=== PATIENT | female | born 1985 | race Caucasian/White ===

== ENCOUNTER → 2016-07-11 08:42 | Outpatient (CLI) | payer BC ==
[2016-07-11 08:50] LABS: BASOPHILS 0.4 % (0.0-2.0); EOSINOPHILS 3.2 % (0-7); HEMATOCRIT 36.4 % (36.0-48.0); HEMOGLOBIN 11.2 g/dL (12-16); IMMATURE GRANULOCYTES 0.3 % (0-5); LYMPHOCYTES 2.7 % (15-50); MCH 25.6 pg (26.0-34.0); MCHC 30.8 g/dL (31.0-37.0); MCV 83.3 fL (80.0-100.0); MEAN PLATELET VOLUME 9.3 fL (7.4-10.4); MONOCYTES 10.6 % (2-11); NEUTROPHILS 82.8 % (40-80); PLATELET COUNT 597 10x3/uL (130-400); RBC 4.37 10x6/uL (4.00-5.40); RDW 15.5 % (11.5-14.5); WBC 11.4 10x3/uL (4.8-10.8)
== END | disposition home or self-care (01) ==
LOC: D.LABREF 08:42
PROVIDERS: Nurse Practitioner Family
DX: D72.829 Elevated white blood cell count, unspecified (principal)

== ENCOUNTER → 2016-08-11 12:50 | Outpatient (CLI) | payer BC ==
[2016-08-11 14:00] LABS: % SATURATION 3 % (15-55); IRON 17 ug/dl (35-150); TOTAL IRON BIND CAPACITY 457 ug/dl (260-445); UNSAT IRON BIND CAPACITY 440 ug/dl (150-375)
[2016-08-11 14:26] LABS: BASOPHILS 0.2 % (0.0-2.0); EOSINOPHILS 0 % (0-7); HEMATOCRIT 39.5 % (36.0-48.0); HEMOGLOBIN 12.1 g/dL (12-16); IMMATURE GRANULOCYTES 0.3 % (0-5); MCH 26.2 pg (26.0-34.0); MCHC 30.6 g/dL (31.0-37.0); MCV 85.5 fL (80.0-100.0); MEAN PLATELET VOLUME 10.5 fL (7.4-10.4); MONOCYTES 1.2 % (2-11); NEUTROPHILS 90.3 % (40-80); RBC 4.62 10x6/uL (4.00-5.40); RDW 17.7 % (11.5-14.5); WBC 11.1 10x3/uL (4.8-10.8)
[2016-08-11 14:29] LABS: PLATELET COUNT 459 10x3/uL (130-400)
[2016-08-12 08:17] LABS: FOLATE (FOLIC ACID) - SERUM 13.6 ng/mL (>3.0)
[2016-08-14 10:11] LABS: VITAMIN D 25 HYDROXY 7.6 ng/mL (30.0-100.0)
== END | disposition home or self-care (01) ==
LOC: D.LABREF 12:50
PROVIDERS: Orthopaedic Surgery Sports Medicine
DX: R53.83 Other fatigue (principal)

== ENCOUNTER → 2017-02-06 10:34 | Outpatient (CLI) | payer BC | END | disposition home or self-care (01) | LOC: D.RAD 10:34 | DX: J45.909 Unspecified asthma, uncomplicated (principal) ==

== ENCOUNTER → 2017-05-04 18:54 | Outpatient (CLI) | payer BC | END | disposition home or self-care (01) | LOC: D.LABREF 18:54 | DX: R31.9 Hematuria, unspecified (principal); N39.0 Urinary tract infection, site not specified ==

== ENCOUNTER → 2017-07-06 18:42 | Outpatient (CLI) | payer BC | END | disposition home or self-care (01) | LOC: D.LABREF 18:42 | DX: N39.0 Urinary tract infection, site not specified (principal) ==

== ENCOUNTER → 2017-07-11 16:40 | Outpatient (CLI) | payer BC | END | disposition home or self-care (01) | LOC: D.LABREF 16:40 | DX: N39.0 Urinary tract infection, site not specified (principal) ==

== ENCOUNTER → 2017-07-13 18:41 | Outpatient (CLI) | payer BC | END | disposition home or self-care (01) | LOC: D.LABREF 18:41 | DX: N39.0 Urinary tract infection, site not specified (principal) ==

== ENCOUNTER → 2017-10-01 15:27 | Outpatient (CLI) | payer BC ==
[2017-10-01 20:14] LABS: BASOPHILS 0.5 % (0-2); EOSINOPHILS 4.4 % (0-7); HEMATOCRIT 36.7 % (36.0-48.0); HEMOGLOBIN 11.2 g/dL (12-16); IMMATURE GRANULOCYTES 0.1 % (0-5); MCH 25.4 pg (26.0-34.0); MCHC 30.5 g/dL (31.0-37.0); MCV 83.2 fL (80.0-100.0); MEAN PLATELET VOLUME 9.6 fL (7.4-10.4); MONOCYTES 9.1 % (2-11); NEUTROPHILS 47.9 % (40-80); RBC 4.41 10x6/uL (4.00-5.40); RDW 18.4 % (11.5-14.5); WBC 11.7 10x3/uL (4.8-10.8)
[2017-10-01 20:24] LABS: PLATELET COUNT 674 10x3/uL (130-400)
[2017-10-01 20:25] LABS: % SATURATION 49 % (15-55); IRON 204 ug/dl (35-150); TOTAL IRON BIND CAPACITY 414 ug/dl (260-445); UNSAT IRON BIND CAPACITY 210 ug/dl (150-375)
== END | disposition home or self-care (01) ==
LOC: D.LABREF 15:27
PROVIDERS: Urology
DX: D50.9 Iron deficiency anemia, unspecified (principal)

== ENCOUNTER → 2018-02-22 17:01 | Outpatient (CLI) | payer BC | END | disposition home or self-care (01) | LOC: D.LABREF 17:01 | DX: D72.829 Elevated white blood cell count, unspecified (principal); R31.9 Hematuria, unspecified ==

== ENCOUNTER 2018-05-12 11:01 | Outpatient (CLI) | payer BC ==
[2018-05-12 12:04] LABS: BASOPHILS 0.5 % (0-2); EOSINOPHILS 2.7 % (0-7); HEMATOCRIT 37.4 % (36.0-48.0); HEMOGLOBIN 12.2 g/dL (12-16); IMMATURE GRANULOCYTES 0.2 % (0-5); LYMPHOCYTES 34.8 % (15-50); MCH 27.9 pg (26.0-34.0); MCHC 32.6 g/dL (31.0-37.0); MCV 85.4 fL (80.0-100.0); MEAN PLATELET VOLUME 9.2 fL (7.4-10.4); MONOCYTES 8.4 % (2-11); NEUTROPHILS 53.4 % (40-80); PLATELET COUNT 593 10x3/uL (130-400); RBC 4.38 10x6/uL (4.00-5.40); RDW 16.2 % (11.5-14.5); WBC 11.3 10x3/uL (4.8-10.8)
[2018-05-12 12:26] LABS: ALBUMIN 3.7 g/dL (3.4-5.0); ALKALINE PHOSPHATASE 57 U/L (46-116); ALT (SGPT) 25 U/L (10-68); BILIRUBIN - TOTAL 0.43 mg/dL (0.2-1.3); CALC OSMOLALITY 274 mosm/kg (275-300); CALCIUM 8.3 mg/dL (8.5-10.1); CARBON DIOXIDE 23.4 mmol/L (21.0-32.0); CHLORIDE - SERUM 104 mmol/L (98-107); CREATININE - SERUM 0.8 mg/dL (0.6-1.3); GLUCOSE 87 mg/dL (74-106); POTASSIUM - SERUM 4.1 mmol/L (3.5-5.1); SODIUM 139 mmol/L (136-145); UREA NITROGEN 8 mg/dL (7-18); eGFR NON AFRICAN AMERICAN 87 mL/min (90-120)
[2018-05-12 16:44] LABS: APPEARANCE HAZY (CLEAR); COLOR RED (YELLOW); GLUCOSE NEGATIVE (NEGATIVE); NITRITE NEGATIVE (NEGATIVE); PROTEIN TRACE mg/dL (NEGATIVE)
[2018-05-12 16:45] LABS: BILIRUBIN NEGATIVE (NEGATIVE); KETONE MODERATE mg/dL (NEGATIVE); UROBILINOGEN NORMAL (NORMAL)
[2018-05-12 16:46] LABS: RED CELLS - URINE >50 /hpf (0-5); WHITE CELLS - URINE 0-5 /hpf (0-5)
[2018-05-12 16:47] LABS: BACTERIA FEW /hpf (NONE SEEN)
== END 2018-05-12 17:11 | disposition home or self-care (01) ==
LOC: D.OPS 11:01 → D.MS 15:00
PROVIDERS: Family Medicine; Urology
DX: N20.1 Calculus of ureter (principal); Z01.812 Encounter for preprocedural laboratory examination

== ENCOUNTER → 2018-08-01 08:00 | Outpatient (CLI) | payer BC ==
[2018-05-12 15:35] VITALS: BMI 26.6
== END | disposition home or self-care (01) ==
LOC: D.CT
PROVIDERS: ATTEND Urology
DX: Z87.442 Personal history of urinary calculi (principal)

== ENCOUNTER → 2018-12-17 09:55 | Outpatient (CLI) | payer BC ==
[2018-05-12 15:35] VITALS: BMI 26.6
== END | disposition home or self-care (01) ==
LOC: D.LABREF 09:55
PROVIDERS: ATTEND Urology
DX: R31.9 Hematuria, unspecified (principal)

== ENCOUNTER → 2018-12-19 19:14 | Outpatient (CLI) | payer BC ==
[2018-05-12 15:35] VITALS: BMI 26.6
[2018-12-25 18:08] LABS: AEROBE ID Preliminary report (())
== END | disposition home or self-care (01) ==
LOC: D.LABREF 19:14
PROVIDERS: ATTEND Urology
DX: R31.9 Hematuria, unspecified (principal)

== ENCOUNTER → 2019-01-29 18:18 | Outpatient (CLI) | payer BC ==
[2018-05-12 15:35] VITALS: BMI 26.6
[2019-01-29 18:57] LABS: BASOPHILS 0.4 % (0-2); EOSINOPHILS 1.9 % (0-7); HEMATOCRIT 34.6 % (36.0-48.0); HEMOGLOBIN 11.3 g/dL (12-16); IMMATURE GRANULOCYTES 0.2 % (0-5); LYMPHOCYTES 35.1 % (15-50); MCH 26.7 pg (26.0-34.0); MCHC 32.7 g/dL (31.0-37.0); MCV 81.6 fL (80.0-100.0); MEAN PLATELET VOLUME 9.1 fL (7.4-10.4); MONOCYTES 8.7 % (2-11); NEUTROPHILS 53.7 % (40-80); PLATELET COUNT 609 10x3/uL (130-400); RBC 4.24 10x6/uL (4.00-5.40); RDW 16.9 % (11.5-14.5); WBC 13.6 10x3/uL (4.8-10.8)
[2019-01-29 19:12] LABS: % SATURATION 5 % (15-55); IRON 27 ug/dl (35-150); TOTAL IRON BIND CAPACITY 452 ug/dl (260-445); UNSAT IRON BIND CAPACITY 425 ug/dl (150-375)
[2019-01-29 19:43] LABS: CALC OSMOLALITY 275 mosm/kg (275-300); CALCIUM 8.7 mg/dL (8.5-10.1); CARBON DIOXIDE 22.5 mmol/L (21.0-32.0); CHLORIDE - SERUM 106 mmol/L (98-107); CREATININE - SERUM 0.8 mg/dL (0.6-1.3); FERRITIN 9 ng/mL (3-244); GLUCOSE 83 mg/dL (74-106); POTASSIUM - SERUM 3.6 mmol/L (3.5-5.1); SODIUM 139 mmol/L (136-145); UREA NITROGEN 10 mg/dL (7-18); eGFR NON AFRICAN AMERICAN 86 mL/min (90-120)
== END | disposition home or self-care (01) ==
LOC: D.LABREF 18:18
PROVIDERS: ATTEND Urology
DX: N92.0 Excessive and frequent menstruation with regular cycle (principal); E55.9 Vitamin D deficiency, unspecified

== ENCOUNTER → 2019-02-27 16:25 | Outpatient (CLI) | payer BC ==
[2018-05-12 15:35] VITALS: BMI 26.6
== END | disposition home or self-care (01) ==
LOC: D.LABREF 16:25
PROVIDERS: ATTEND Urology
DX: R31.9 Hematuria, unspecified (principal)

== ENCOUNTER → 2019-03-21 15:24 | Outpatient (CLI) | payer BC ==
[2018-05-12 15:35] VITALS: BMI 26.6
== END | disposition home or self-care (01) ==
LOC: D.LABREF 15:24
PROVIDERS: ATTEND Urology
DX: R82.998 Other abnormal findings in urine (principal)

== ENCOUNTER → 2019-04-15 14:09 | Outpatient (CLI) | payer BC ==
[2018-05-12 15:35] VITALS: BMI 26.6
== END | disposition home or self-care (01) ==
LOC: D.LABREF 14:09
PROVIDERS: ATTEND Urology
DX: D70.8 Other neutropenia (principal); N39.0 Urinary tract infection, site not specified